=== PATIENT | female | born 1985 | race Caucasian/White ===

== ENCOUNTER 2022-09-21 12:39 | Emergency (ER) | payer OTHER, SELFPAY ==
[2022-09-21 12:41] VITALS: BP 124/81; PULSE 78; RESP 16; TEMP 36.7; O2SAT 96; BMI 40.7
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
[2022-09-21] MEDS: HYDROcodone Bitartrate/Apap 5/325 Tablet PO (14:07)
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
[2022-09-21 14:40] VITALS: BP 151/86; PULSE 81; RESP 16; O2SAT 97
[2022-09-21 15:43] VITALS: BP 131/72; PULSE 79; RESP 16; O2SAT 96
[2022-09-21] MEDS: oxyCODONE 5 MG Tablet PO (16:33)
--- NOTE | 2022-09-21 17:53 | CM.ED ---
SW Note MANNY reviewed tracker and noted that patient had no PCP. MANNY was advised that patient has been an employee of [employer] since April. She has a PCP in [place]. No further issues or concerns voiced. MANNY remains available if needs arise. Leona ESTRADA
--- NOTE | 2022-09-21 19:31 | ED.RN ---
pt completes drug screen for workmans comp. ambualtes out of dept with family.
== END 2022-09-21 19:32 | disposition home or self-care (01) ==
PROVIDERS: Emergency Provider Emergency Medicine; Visit Provider Emergency Medicine
DX: S22.20XA Unspecified fracture of sternum, initial encounter for closed fracture (principal); V89.2XXA Person injured in unspecified motor-vehicle accident, traffic, initial encounter; S22.39XA Fracture of one rib, unspecified side, initial encounter for closed fracture; F17.210 Nicotine dependence, cigarettes, uncomplicated; S62.319A Displaced fracture of base of unspecified metacarpal bone, initial encounter for closed fracture
CPT/HCPCS: 29125; 71101; 71120; 72170; 73110; 73130; 99285

== ENCOUNTER 2023-01-02 08:00 | Outpatient (RCR) | payer OTHER, SELFPAY ==
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
--- NOTE | 2023-01-02 08:11 | HP.OTDCSUM_ITS ---
It has been my pleasure to treat CASPER HILL under orders from Dr. Joce Mayorga, DO, for the diagnosis of left 3rd metacarpal fx base for a total of 12 visit(s). Please see the following information for a summary of their discharge status. % Improvement: 90 Objective/Function: left wrist 70/70 increase from 40/15. left MCP ROM increased from 30* to 85*. pt left mechanical cad designer strength 40# this is increase from pt unable to perform. pt left lateral pinch 12#. left tripod pinch 12#. pt has met goals of ROM pt to continue with PRE to continue to improve her left mechanical cad designer strength. 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 Pt will cont with HEP to cont to increase her functional strength of left mechanical cad designer. pt demo understanding and agrees she is ready for D/C. If there are questions or concerns regarding this patient's occupational therapy , please fell free to call me at [phone]. Thank you for the referral of this patient. Sincerely, Brandi Graff, OTR/L, CHT
== END 2023-01-02 15:23 | disposition home or self-care (01) ==
LOC: OT 08:00
PROVIDERS: Referring Provider Student in an Organized Health Care Education/Training Program; Visit Provider Student in an Organized Health Care Education/Training Program
DX: S62.313D Displaced fracture of base of third metacarpal bone, left hand, subsequent encounter for fracture with routine healing (principal)
CPT/HCPCS: 97110; 97140; 97166; 97530

== ENCOUNTER → 2023-03-06 | Outpatient (CLI) | payer OTHER, SELFPAY ==
[2023-03-06 15:26] LABS: Absolute Lymphocyte Count 3.23 X10^3/uL (0.83-4.51); Absolute Neutrophil Count 6.5 X10^3/uL (2.0-7.7); Basophil# 0.11 X10^3/uL; Eosinophil# 0.41 X10^3/uL; Eosinophils% 3.6 % (0-5); Hematocrit 44.2 % (37-47); Hemoglobin 14.4 g/dL (12.0-15.0); Lymphocyte # 3.23 X10^3/ul (0.83-4.51); Lymphocyte % 28.7 % (19-41); Mean Corp Hgb Conc 32.6 g/dL (32-36); Mean Corpuscular Hgb 29.4 pg (27.0-32.0); Mean Corpuscular Volume 90.4 fL (81-99); Mean Platelet Vol. 10.9 fl (6.2-12.0); Monocyte# 1.01 X10^3/uL; NRBC Flagged by Analyzer 0 % (0-5); Neutrophil # 6.48 X10^3/uL (2.7-7.7); Neutrophil % 57.4 % (47-70); Platelet Count 380 K/mm3 (150-450); RBC Distribution Width CV 14.1 % (11.6-14.6); RBC Distribution Width SD 46.5 fl (35.1-43.9); Red Blood Count 4.89 M/mm3 (4.2-5.4); White Blood Count 11.3 K/mm3 (4.4-11.0)
[2023-03-06 15:55] LABS: Ferritin 27 ng/mL (8-252); Iron 49 ug/dL (50-170); Iron Binding Capacity,Total 292 ug/dL (250-450); PERCENT IRON SATURATION 16.8 % (15.0-55.0); T4 Free Direct 1.02 ng/dL (0.76-1.46)
[2023-03-07 13:48] LABS: Thyroid Stim Hormone (TSH) 1.76 uIU/mL (0.358-3.74)
[2023-03-08 05:07] LABS: Transferrin 245 mg/dL (192-364)
== END | disposition home or self-care (01) ==
DX: N92.6 Irregular menstruation, unspecified (principal)
CPT/HCPCS: 36415; 82728; 83540; 83550; 84439; 84443; 84466; 85025